=== PATIENT | female | born 1945 | race Caucasian/White ===

== ENCOUNTER → 2017-06-05 | Outpatient (CLI) | payer MEDICARE, OTHER ==
[~2017-06-05] MED LIST: ALBU18HF INH; AMIO400T4 PO; ASPI-496 PO; ATOR40TA PO; AZIT1PAC7 PO; CHOLESTOFF PO; ENOX60SY4 SQ; GUAR1PAC2 PO; METO25TA91 PO; METO50TA82 PO; SOTA80TA PO; TRAM50TA2 PO; WARF2.5T73 PO; WARF5TAB7 PO; ZOLP10TA PO
== END | disposition home or self-care (01) ==
LOC: CFH 13:18
PROVIDERS: ATTEND Internal Medicine
DX: I82.502 Chronic embolism and thrombosis of unspecified deep veins of left lower extremity (principal)

== ENCOUNTER → 2017-09-17 | Outpatient (CLI) | payer MEDICARE, OTHER ==
[~2017-09-17] MED LIST changes: -AZIT1PAC7 PO; +AZIT1PAC9 PO; +REGADENOSON 0.4 MG/5 ML SYRINGE ONE
== END | disposition home or self-care (01) ==
LOC: CFH 12:38
PROVIDERS: ATTEND Internal Medicine Cardiovascular Disease
DX: I48.91 Unspecified atrial fibrillation (principal)
CPT/HCPCS: 78452; 93017; A9502; J2785

== ENCOUNTER 2017-10-18 11:39 | Emergency (ER) | payer MEDICARE, OTHER ==
[~2017-10-18] VITALS: Ht 152.4 cm; Wt 62.9 kg
[~2017-10-18 11:39] MED LIST changes: -REGADENOSON 0.4 MG/5 ML SYRINGE ONE
[2017-10-18 11:46] VITALS: BP 175/66
== END 2017-10-18 12:50 | disposition home or self-care (01) ==
LOC: ED 12:40
DX: R58 Hemorrhage, not elsewhere classified (principal); I48.91 Unspecified atrial fibrillation; Z79.01 Long term (current) use of anticoagulants; Z96.652 Presence of left artificial knee joint
CPT/HCPCS: 93005; 99283

== ENCOUNTER → 2017-10-31 | Outpatient (CLI) | payer MEDICARE, OTHER | END | disposition home or self-care (01) | LOC: CFH 09:29 | PROVIDERS: ATTEND Surgery Vascular Surgery | DX: T18.2XXA Foreign body in stomach, initial encounter (principal); I82.91 Chronic embolism and thrombosis of unspecified vein; X58.XXXA Exposure to other specified factors, initial encounter; Y93.89 Activity, other specified; Y92.89 Other specified places as the place of occurrence of the external cause; Y99.8 Other external cause status | CPT/HCPCS: 71020; 74000 ==

== ENCOUNTER → 2018-06-03 | Outpatient (CLI) | payer MEDICARE, OTHER ==
[~2018-06-03] MED LIST changes: -AMIO400T4 PO; +AMIO400T5 PO; +WARF-36 PO; -WARF5TAB7 PO
== END | disposition home or self-care (01) ==
LOC: CFH 07:17
PROVIDERS: ATTEND Internal Medicine Cardiovascular Disease
DX: I08.0 Rheumatic disorders of both mitral and aortic valves (principal); I48.91 Unspecified atrial fibrillation; M94.0 Chondrocostal junction syndrome [Tietze]
CPT/HCPCS: 71046; 93306

== ENCOUNTER → 2018-10-29 | Outpatient (CLI) | payer MEDICARE, OTHER ==
[~2018-10-29] MED LIST changes: +OMNIPAQUE 350 MG/ML, 100ML BOTTLE ONE
== END | disposition home or self-care (01) ==
LOC: CFH 07:53
PROVIDERS: ATTEND Internal Medicine
DX: K80.20 Calculus of gallbladder without cholecystitis without obstruction (principal); K76.89 Other specified diseases of liver
CPT/HCPCS: 74160; 76700; Q9967

== ENCOUNTER 2018-12-11 09:22 | Outpatient (CLI) | payer MEDICARE, OTHER ==
[~2018-12-11 09:22] MED LIST changes: -OMNIPAQUE 350 MG/ML, 100ML BOTTLE ONE; +WARF2.5T32 PO; -WARF2.5T73 PO
[2018-12-11] MEDS ORDERED: WARF-36 PO (10:21)
[2018-12-11] MEDS ORDERED: ASPI81TA45 PO (10:21)
[2018-12-11] MEDS ORDERED: ALBU8.5H8 INH (10:21)
[2018-12-11] MEDS ORDERED: ATOR40TA78 PO (10:21)
[2018-12-11 10:26] LABS: BASOPHILS # (AUTO) 0.03 x10^3/uL (0-0.1); BASOPHILS % (AUTO) 0 % (0-1); EOSINOPHILS # (AUTO) 0.22 x10^3/uL (0-0.4); EOSINOPHILS % (AUTO) 3 % (1-7); LYMPHOCYTES % (AUTO) 26 % (22-44); MD NO; MEAN CORPUSCULAR HEMOGLOBIN 29.3 pg (27.0-34.8); MEAN CORPUSCULAR HGB CONC 32.3 g/dL (32.4-35.8); MEAN CORPUSCULAR VOLUME 90.7 fL (80-100); MEAN PLATELET VOLUME 8.9 fL (7.4-10.4); MONOCYTES # (AUTO) 0.71 x10^3/uL (0.2-0.8); MONOCYTES % (AUTO) 10 % (2-9); NEUTROPHILS # (AUTO) 4.59 x10^3/uL (1.8-6.8); NEUTROPHILS % (AUTO) 62 % (42-75); PLATELET COUNT 210 x10^3/uL (130-400); RED BLOOD COUNT 4.68 x10^6/uL (3.82-5.3); RED CELL DISTRIBUTION WIDTH 14.3 % (9.6-15.2)
[2018-12-11 10:41] LABS: PROTHROMBIN TIME 57.8 Seconds (9.6-11.5)
[2018-12-11 10:42] LABS: INTERNATIONAL NORMALIZED RATIO 5.84 (0.93-1.1)
== END 2018-12-11 23:59 | disposition home or self-care (01) ==
LOC: STAR 09:22
PROVIDERS: ATTEND Surgery Vascular Surgery
DX: Z01.818 Encounter for other preprocedural examination (principal)
CPT/HCPCS: 36415; 85025; 85610; 85730; 93005

== ENCOUNTER 2018-12-25 06:00 | Observation (INO) | payer MEDICARE, OTHER ==
[~2018-12-25] VITALS: Ht 152.4 cm; Wt 63.0 kg
[~2018-12-25 06:00] MED LIST changes: +ALBU8.5H8 INH; +ASPI81TA45 PO; +ATOR40TA78 PO
[2018-12-25 06:36] VITALS: BP 116/68
[2018-12-25] MEDS ORDERED: FENTANYL PF 250 MCG/5ML ONE (06:47)
[2018-12-25] MEDS ORDERED: BUPIVACAINE/PF-EPI 0.5% 1:200K ONE (06:47)
[2018-12-25] MEDS ORDERED: LACTATED RINGERS 1,000 ML IV SCH (06:52)
[2018-12-25 06:54] LABS: INTERNATIONAL NORMALIZED RATIO 0.98 (0.93-1.1); PROTHROMBIN TIME 10.4 Seconds (9.6-11.5)
[2018-12-25] MEDS ORDERED: DIAZEPAM 5 MG/ML, 2ML IVPush PRN (07:00)
[2018-12-25] MEDS ORDERED: LABETALOL 5MG/ML, 20ML IV PRN (07:00)
[2018-12-25] MEDS ORDERED: PROMETHAZINE 25 MG/ML, 1ML IV PRN (07:00)
[2018-12-25] MEDS ORDERED: ACETAMINOPHEN 325 MG TABLET PO PRN (07:00)
[2018-12-25] MEDS ORDERED: MORPHINE SULFATE 4 MG/ML, 1ML IVPush PRN ×2 (07:00→13:00)
[2018-12-25] MEDS ORDERED: hydrALAzine 20 MG/ML, 1ML IV PRN (07:00)
[2018-12-25] MEDS ORDERED: HYDROcodone/APAP 7.5-325MG/15ML UDC PO PRN (07:00)
[2018-12-25] MEDS ORDERED: ONDANSETRON 2MG/ML, 2ML IV PRN (07:00)
[2018-12-25] MEDS ORDERED: ONDANSETRON ODT 8 MG PO PRN (07:00)
[2018-12-25] MEDS ORDERED: EPHEDRINE 50 MG/ML, 1ML ONE (07:01)
[2018-12-25] MEDS ORDERED: BUPIVACAINE/PF-EPI 0.5% 1:200K INFIL ONE (07:18)
[2018-12-25] MEDS ORDERED: ONDANSETRON 2MG/ML, 2ML ONE (07:25)
[2018-12-25] MEDS ORDERED: CEFAZOLIN 1,000 MG ONE (07:25)
[2018-12-25] MEDS ORDERED: SUCCINYLCHOLINE 20 MG/ML, 10ML ONE (07:25)
[2018-12-25] MEDS ORDERED: DEXAMETHASONE 4 MG/ML, 1ML ONE (07:25)
[2018-12-25] MEDS ORDERED: ROCURONIUM 10MG/ML,5ML ONE (07:25)
[2018-12-25] MEDS ORDERED: NEOSTIGMINE 1 MG/ML, 10ML ONE (07:25)
[2018-12-25] MEDS ORDERED: GLYCOPYRROLATE 0.2MG/1ML, 5ML ONE (07:25)
[2018-12-25] MEDS ORDERED: PROPOFOL 10 MG/ML, 20ML ONE (07:25)
[2018-12-25] MEDS ORDERED: METOPROLOL 1 MG/ML, 5ML ONE (07:58)
[2018-12-25] MEDS ORDERED: HYDROcodone/APAP 7.5-325MG/15ML UDC ONE (07:58)
[2018-12-25] MEDS ORDERED: FENTANYL PF 100 MCG/2ML ONE (07:58)
[2018-12-25] MEDS: FENTANYL PF 100 MCG/2ML IV PRN ×2 (08:05→08:44)
[2018-12-25] MEDS: METOPROLOL 1 MG/ML, 5ML IV PRN ×3 (08:34→09:22)
[2018-12-25] MEDS ORDERED: METOPROLOL TARTRATE 25 MG TABLET PO ONE (10:41)
[2018-12-25 11:52] VITALS: BP 94/58
[2018-12-25] MEDS ORDERED: ONDANSETRON 2MG/ML, 2ML IVPush PRN ×2 (12:00→13:00)
[2018-12-25] MEDS ORDERED: ONDANSETRON ODT 4 MG PO PRN (12:00)
[2018-12-25] MEDS ORDERED: morphine SULFATE 10 MG/ML, 1ML IVPush PRN (12:00)
[2018-12-25] MEDS ORDERED: LABETALOL 5MG/ML, 20ML IVPush PRN (12:00)
[2018-12-25] MEDS ORDERED: HYDR-3240 PO (13:16)
[2018-12-25] MEDS ORDERED: ONDA4TAB7 PO (13:16)
[2018-12-25] MEDS: HYDROcodone/APAP 5/325 TABLET PO PRN ×2 (13:23→17:59)
[2018-12-25 13:35] VITALS: BP 107/66
[2018-12-25] MEDS ORDERED: ENOX60SY5 SC (17:36)
[2018-12-26] MEDS ORDERED: PANTOPRAZOLE 40 MG IV IVPush SCH (07:30)
== END 2018-12-25 18:14 | disposition home or self-care (01) ==
LOC: OUT 06:00 → 5SO 11:40 → OUT 11:56
PROVIDERS: ADMIT Surgery Vascular Surgery; ATTEND Surgery Vascular Surgery
DX: K80.20 Calculus of gallbladder without cholecystitis without obstruction (principal); E78.5 Hyperlipidemia, unspecified; G47.30 Sleep apnea, unspecified; I10 Essential (primary) hypertension; I25.10 Atherosclerotic heart disease of native coronary artery without angina pectoris; I48.0 Paroxysmal atrial fibrillation; I73.9 Peripheral vascular disease, unspecified; Z79.01 Long term (current) use of anticoagulants; Z87.891 Personal history of nicotine dependence; Z86.718 Personal history of other venous thrombosis and embolism
CPT/HCPCS: 36415; 47562; 84439; 85610; 85730; 88304; G0378; J0330; J0690; J1100; J2405; J2704; J2710; J3010; J3490

== ENCOUNTER → 2019-05-29 | Outpatient (CLI) | payer MEDICARE, OTHER ==
[~2019-05-29] MED LIST changes: +ENOX60SY5 SC; +HYDR-3240 PO; +ONDA4TAB7 PO
== END | disposition home or self-care (01) ==
LOC: RAD 15:28
PROVIDERS: ATTEND Surgery Vascular Surgery
DX: I82.91 Chronic embolism and thrombosis of unspecified vein (principal); Z90.49 Acquired absence of other specified parts of digestive tract; Z86.718 Personal history of other venous thrombosis and embolism
CPT/HCPCS: 74021

== ENCOUNTER 2020-01-27 07:40 | Day surgery (SDC) | payer MEDICARE, OTHER ==
[~2020-01-27] VITALS: Ht 152.4 cm; Wt 61.4 kg
[2020-01-27 08:07] VITALS: BP 150/80
[2020-01-27] MEDS ORDERED: ASPI81TA45 PO (08:20)
[2020-01-27 08:27] LABS: BASOPHILS # (AUTO) 0.04 x10^3/uL (0-0.1); BASOPHILS % (AUTO) 1 % (0-1); EOSINOPHILS % (AUTO) 5 % (1-7); LYMPHOCYTES # (AUTO) 1.21 x10^3/uL (1-3.4); LYMPHOCYTES % (AUTO) 20 % (22-44); MD NO; MEAN CORPUSCULAR HEMOGLOBIN 29.7 pg (27.0-34.8); MEAN CORPUSCULAR HGB CONC 32.9 g/dL (32.4-35.8); MEAN CORPUSCULAR VOLUME 90.2 fL (80-100); MEAN PLATELET VOLUME 9.1 fL (7.4-10.4); MONOCYTES # (AUTO) 0.57 x10^3/uL (0.2-0.8); MONOCYTES % (AUTO) 9 % (2-9); NEUTROPHILS # (AUTO) 4.06 x10^3/uL (1.8-6.8); NEUTROPHILS % (AUTO) 66 % (42-75); PLATELET COUNT 187 x10^3/uL (130-400); RED BLOOD COUNT 4.44 x10^6/uL (3.82-5.3); RED CELL DISTRIBUTION WIDTH 14.8 % (9.6-15.2)
[2020-01-27 08:35] LABS: ANION GAP 4 mmol/L (5-15); CALCIUM 8.5 mg/dL (8.5-10.1); CHLORIDE 115 mmol/L (98-107); CREATININE 0.95 mg/dL (0.55-1.02)
[2020-01-27 08:38] LABS: INTERNATIONAL NORMALIZED RATIO 1.51 (0.93-1.1); PROTHROMBIN TIME 16.1 Seconds (9.6-11.5)
== END 2020-01-27 10:00 | disposition home or self-care (01) ==
LOC: CACL 07:40
PROVIDERS: ATTEND Internal Medicine Cardiovascular Disease
DX: I48.91 Unspecified atrial fibrillation (principal)
CPT/HCPCS: 36415; 80048; 85025; 85610; 92960

== ENCOUNTER → 2020-08-11 | Outpatient (CLI) | payer MEDICARE, OTHER ==
[~2020-08-11] MED LIST changes: +REGADENOSON 0.4 MG/5 ML SYRINGE ONE
== END | disposition home or self-care (01) ==
LOC: CFH 07:33
PROVIDERS: ATTEND Internal Medicine Cardiovascular Disease
DX: I08.8 Other rheumatic multiple valve diseases (principal); I48.91 Unspecified atrial fibrillation; R06.02 Shortness of breath
CPT/HCPCS: 78452; 93017; 93306; A9502; J2785

== ENCOUNTER 2021-01-30 08:46 | Inpatient (IN) | payer MEDICARE, OTHER ==
[~2021-01-30] VITALS: Ht 152.4 cm; Wt 64.7 kg
[~2021-01-30 08:46] MED LIST changes: +HYDR-1067 PO; -HYDR-3240 PO; -REGADENOSON 0.4 MG/5 ML SYRINGE ONE
[2021-01-30] MEDS ORDERED: PLEASE ENTER HEIGHT AND WEIGHT MC SCH (09:00)
[2021-01-30 10:30] VITALS: BP 133/85
[2021-01-30 10:36] LABS: ANION GAP 4 mmol/L (5-15); CALCIUM 8.5 mg/dL (8.5-10.1); CHLORIDE 114 mmol/L (98-107); CREATININE 0.86 mg/dL (0.55-1.02)
[2021-01-30 10:41] LABS: CHOL/HDL RATIO 2.2; CHOLESTEROL, TOTAL 114 mg/dL (140-239); FREE T4 (FREE THYROXINE) 1.18 ng/dL (0.76-1.46); HDL CHOL % 46 % (28-40); HDL CHOLESTEROL (DIRECT) 52 mg/dL (40-60); LDL CHOLESTEROL,CALCULATED 49 mg/dL (54-169); LDL/HDL RATIO 0.9 (0.5-3.0); TRIGLYCERIDES 66 mg/dL (50-200); TROPONIN I < 0.015 ng/mL (0.000-0.045); VLDL CHOLESTEROL 13 mg/dL (0-25)
[2021-01-30] MEDS ORDERED: BISACODYL 5 MG EC TABLET PO PRN (11:30)
[2021-01-30] MEDS ORDERED: BISACODYL 10 MG SUPP PR PRN (11:30)
[2021-01-30] MEDS ORDERED: ONDANSETRON 2MG/ML, 2ML IVPush PRN (11:30)
[2021-01-30] MEDS ORDERED: ZOLPIDEM 5MG TABLET PO PRN (11:30)
[2021-01-30 11:49] LABS: PROTHROMBIN TIME 33.6 Seconds (9.6-11.5)
[2021-01-30 11:50] LABS: INTERNATIONAL NORMALIZED RATIO 3.21 (0.93-1.1)
[2021-01-30] MEDS: SOTALOL 80MG TABLET PO SCH ×2 (12:15→21:05)
[2021-01-30 14:29] VITALS: BP 112/75
[2021-01-30 16:24] LABS: TROPONIN I < 0.015 ng/mL (0.000-0.045)
[2021-01-30] MEDS ORDERED: WARFARIN 1 MG TABLET PO-COUM ONE (18:00)
[2021-01-30] MEDS: ACETAMINOPHEN 325 MG TABLET PO PRN (18:16)
[2021-01-30] MEDS ORDERED: SOTALOL 80MG TABLET PO SCH (21:00)
[2021-01-30 21:01] VITALS: BP 110/67
[2021-01-30] MEDS: ATORVASTATIN 40 MG TABLET PO SCH (21:05)
[2021-01-30 22:25] LABS: TROPONIN I < 0.015 ng/mL (0.000-0.045)
[2021-01-31 02:18] VITALS: BP 103/67
[2021-01-31 07:14] VITALS: BP 132/82
[2021-01-31] MEDS: ACETAMINOPHEN 325 MG TABLET PO PRN (10:05)
[2021-01-31] MEDS: SOTALOL 80MG TABLET PO SCH ×2 (10:05→21:10)
[2021-01-31 12:25] VITALS: BP 101/68
[2021-01-31 13:47] LABS: INTERNATIONAL NORMALIZED RATIO 2.46 (0.93-1.1); PROTHROMBIN TIME 25.9 Seconds (9.6-11.5)
[2021-01-31] MEDS ORDERED: WARFARIN 2.5 MG TABLET PO-COUM ONE (18:00)
[2021-01-31 20:00] VITALS: BP 94/57
[2021-01-31 21:08] VITALS: BP 100/67
[2021-01-31] MEDS: ATORVASTATIN 40 MG TABLET PO SCH (21:10)
[2021-01-31] MEDS: ASPIRIN 81 MG TABLET EC PO SCH (21:56)
[2021-02-01 00:33] VITALS: BP 97/59
[2021-02-01 07:30] VITALS: BP 115/71
[2021-02-01 07:38] LABS: INTERNATIONAL NORMALIZED RATIO 1.87 (0.93-1.1); PROTHROMBIN TIME 19.8 Seconds (9.6-11.5)
[2021-02-01] MEDS: SOTALOL 80MG TABLET PO SCH ×2 (09:03→20:38)
[2021-02-01] MEDS ORDERED: PROPOFOL 10 MG/ML, 20ML ONE (10:41)
[2021-02-01 12:59] VITALS: BP 127/85
[2021-02-01] MEDS: ACETAMINOPHEN 325 MG TABLET PO PRN (16:18)
[2021-02-01] MEDS ORDERED: WARFARIN 7.5 MG TABLET PO-COUM SCH (18:00)
[2021-02-01 19:40] VITALS: BP 110/70
[2021-02-01] MEDS: ATORVASTATIN 40 MG TABLET PO SCH (20:38)
[2021-02-01] MEDS: ASPIRIN 81 MG TABLET EC PO SCH (20:38)
[2021-02-02 02:05] VITALS: BP 113/72
[2021-02-02 05:09] LABS: INTERNATIONAL NORMALIZED RATIO 1.78 (0.93-1.1); PROTHROMBIN TIME 18.8 Seconds (9.6-11.5)
[2021-02-02 07:29] VITALS: BP 121/68
[2021-02-02] MEDS: SOTALOL 80MG TABLET PO SCH (09:23)
[2021-02-02] MEDS: ASPIRIN 81 MG TABLET EC PO SCH (09:23)
[2021-02-02] MEDS ORDERED: SOTA80TA18 PO (10:21)
== END 2021-02-02 13:08 | disposition home or self-care (01) | DRG 310 ==
LOC: 5SO 08:48 → DCLOUNGE 02-02 12:55
PROVIDERS: ADMIT Internal Medicine Cardiovascular Disease; ATTEND Internal Medicine Cardiovascular Disease
PROC: 5A2204Z Restoration of Cardiac Rhythm, Single (ICD-10-PCS; principal; 2021-02-01 11:30)
DX: I48.91 Unspecified atrial fibrillation (principal); E78.5 Hyperlipidemia, unspecified; Z88.5 Allergy status to narcotic agent; Z88.8 Allergy status to other drugs, medicaments and biological substances
CPT/HCPCS: 36415; 71046; 80048; 80061; 84439; 84443; 84484; 85014; 85018; 85610; 86803; 87340; 87806; 92960; 93005; G0378; J2704; G0475

== ENCOUNTER → 2021-02-27 | Day surgery (SDC) | payer MEDICARE, OTHER ==
[~2021-02-27] VITALS: Ht 162.6 cm; Wt 68.0 kg
[~2021-02-27] MED LIST changes: +PROPOFOL 10 MG/ML, 20ML ONE; +SOTA80TA18 PO; +benifiber PO
[2021-02-27 11:24] LABS: INTERNATIONAL NORMALIZED RATIO 2.02 (0.93-1.1); PROTHROMBIN TIME 21.3 Seconds (9.6-11.5)
[2021-02-27 11:25] LABS: ANION GAP 5 mmol/L (5-15); CALCIUM 8.9 mg/dL (8.5-10.1); CHLORIDE 113 mmol/L (98-107); CREATININE 0.83 mg/dL (0.55-1.02)
== END | disposition home or self-care (01) ==
LOC: CACL 10:26
PROVIDERS: ATTEND Internal Medicine Cardiovascular Disease
DX: I48.91 Unspecified atrial fibrillation (principal); E78.5 Hyperlipidemia, unspecified; E66.3 Overweight; Z68.28 Body mass index [BMI] 28.0-28.9, adult; Z79.01 Long term (current) use of anticoagulants; Z79.82 Long term (current) use of aspirin; Z79.899 Other long term (current) drug therapy; Z86.718 Personal history of other venous thrombosis and embolism; Z88.5 Allergy status to narcotic agent; Z88.8 Allergy status to other drugs, medicaments and biological substances; Z91.048 Other nonmedicinal substance allergy status; Z98.890 Other specified postprocedural states
CPT/HCPCS: 36415; 80048; 85610; 92960; 93005; J2704

== ENCOUNTER 2021-03-16 09:12 | Emergency (ER) | payer MEDICARE, OTHER ==
[~2021-03-16] VITALS: Ht 152.4 cm; Wt 62.9 kg
[~2021-03-16 09:12] MED LIST changes: -HYDR-1067 PO; +HYDR-2214 PO; -PROPOFOL 10 MG/ML, 20ML ONE
--- NOTE | 2021-03-16 09:15 | NUR ---
PT ARRIVED VIA EMS FROM HOME, SEE TRIAGE. FOUND PT ON FLOOR THIS AM AT APPROX [phone], UNABLE TO GET UP. PT ALERT, ABLE TO FOLLOW SOME COMMANDS. PT VERBALIZES BUT INAPPROPRIATE WORDS, WORD SALAD. PUPILS UNEQUAL BUT REACTIVE TO LIGHT. R PUPIL 3.0, L PUPIL 2.O. PT WITH R ARM WEAKNESS AND STIFFENING, R LEG MILDLY WEAK. NO FACIAL DROOP OR ASYMMETRY NOTED TO FACE OR MOUTH. PT ABLE WITH EQUAL EYE MOVEMENT, ABLE TO TRACK FINGER IN ALL BENOIT. AT BS.
[2021-03-16] MEDS ORDERED: SODIUM CHLORIDE FLUSH 10ML SYR IVF ONE (09:30)
[2021-03-16] MEDS ORDERED: OMNIPAQUE 350 MG/ML, 100ML BOTTLE ONE (09:56)
[2021-03-16 10:03] LABS: BASOPHILS % (AUTO) 1 % (0-1); EOSINOPHILS % (AUTO) 2 % (1-7); LYMPHOCYTES % (AUTO) 13 % (22-44); MEAN CORPUSCULAR HEMOGLOBIN 30.2 pg (27.0-34.8); MEAN CORPUSCULAR HGB CONC 33.2 g/dL (32.4-35.8); MEAN PLATELET VOLUME 8.9 fL (7.4-10.4); MONOCYTES % (AUTO) 7 % (2-9); NEUTROPHILS % (AUTO) 78 % (42-75); PLATELET COUNT 156 x10^3/uL (130-400); RED BLOOD COUNT 4.12 x10^6/uL (3.82-5.3); RED CELL DISTRIBUTION WIDTH 14.1 % (9.6-15.2)
[2021-03-16 10:04] LABS: MD NO
[2021-03-16 10:15] LABS: ALBUMIN 3.2 g/dL (3.4-5.0); ANION GAP 4 mmol/L (5-15); CHLORIDE 111 mmol/L (98-107)
--- NOTE | 2021-03-16 10:15 | NUR ---
PT MOVED TO WEIGHTED BED, BEDSCALE USED/ADJUSTED TRIAGE WT IN COMPUTER.
[2021-03-16 10:18] LABS: ALANINE AMINOTRANSFERASE 25 U/L (12-78); ALKALINE PHOSPHATASE 67 U/L (45-117); BILIRUBIN,TOTAL 0.8 mg/dL (0.2-1.0); CREATININE 0.75 mg/dL (0.55-1.02)
[2021-03-16 10:22] LABS: INTERNATIONAL NORMALIZED RATIO 1.45 (0.93-1.1); PROTHROMBIN TIME 15.4 Seconds (9.6-11.5)
--- NOTE | 2021-03-16 10:31 | NUR ---
PT RESTING QUIETLY, STILL SHAKES HEAD WHEN ASKED IF HAVING PAIN. ANNABELLE WARMER IN PLACE. PT SHAKES HEAD WHEN ASKED IF SHE CAN SWALLOW, HOLD ON SWALLOW EVALUATION AT THIS TIME. MED REC COMLETED TO BEST OF ABILITY. DOES NOT HAVE LIST AND DOES NOT KNOW DOSAGES. VSS.
--- NOTE | 2021-03-16 10:50 | NUR ---
TRANSFER FORM FILLED OUT. REPORT TO [facility].
--- NOTE | 2021-03-16 10:52 | NUR ---
JOSE RN: PT IS STAT TX TO [facility]. ACCEPTED BY DR.RAJ SWAN Addendum: 03/16/21 at 1055 by [email or web address] JOSE RN: PT IS STAT TX TO [facility]. ACCEPTED BY NEURO RADIOLOGIST. ACCEPTING [facility] . STAT TRANSPORT PROVIDED BY [facility].
--- NOTE | 2021-03-16 10:59 | NUR ---
TP RN: PT LEFT [facility] ED AT THIS TIME.
--- NOTE | 2021-03-16 11:00 | NUR ---
REPORT TO ZAHRA PATRICK AT [facility]. PT TRANSFERRED NOW.
[2021-03-16 11:01] VITALS: BP 137/58
== END 2021-03-16 11:03 | disposition other institution (70) ==
LOC: ED 09:38
DX: I63.032 Cerebral infarction due to thrombosis of left carotid artery (principal); I48.91 Unspecified atrial fibrillation; R53.1 Weakness; R00.9 Unspecified abnormalities of heart beat
CPT/HCPCS: 36415; 70450; 70496; 70498; 71045; 80053; 85025; 85610; 93005; 99291; Q9967

== ENCOUNTER 2021-03-31 07:01 | Day surgery (SDC) | payer MEDICARE, OTHER ==
[~2021-03-31] VITALS: Ht 152.4 cm; Wt 64.5 kg
[2021-03-31 07:14] VITALS: BP 119/72
[2021-03-31] MEDS ORDERED: SODIUM CHLORIDE 0.9% 1,000 ML IV SCH (07:30)
[2021-03-31] MEDS ORDERED: APIX5TAB PO (07:33)
[2021-03-31 08:06] LABS: ANION GAP 5 mmol/L (5-15); CALCIUM 8.8 mg/dL (8.5-10.1); CHLORIDE 111 mmol/L (98-107); CREATININE 0.88 mg/dL (0.55-1.02)
== END 2021-03-31 10:46 | disposition home or self-care (01) ==
LOC: CACL 07:01
PROVIDERS: ATTEND Internal Medicine Cardiovascular Disease
DX: I48.0 Paroxysmal atrial fibrillation (principal); I63.9 Cerebral infarction, unspecified; I10 Essential (primary) hypertension; E78.5 Hyperlipidemia, unspecified; E66.3 Overweight; Z68.27 Body mass index [BMI] 27.0-27.9, adult; Z79.01 Long term (current) use of anticoagulants; Z79.82 Long term (current) use of aspirin; Z79.899 Other long term (current) drug therapy; Z86.718 Personal history of other venous thrombosis and embolism; Z88.5 Allergy status to narcotic agent; Z88.8 Allergy status to other drugs, medicaments and biological substances; Z90.49 Acquired absence of other specified parts of digestive tract
CPT/HCPCS: 36415; 80048; 93312; 93321; 93325

== ENCOUNTER 2021-05-12 12:10 | Outpatient (CLI) | payer MEDICARE, OTHER ==
[~2021-05-12 12:10] MED LIST changes: +APIX5TAB PO
[2021-05-12] MEDS ORDERED: OMNIPAQUE 350 MG/ML, 150 ML BOTTLE ONE (14:30)
== END 2021-05-12 23:59 | disposition home or self-care (01) ==
LOC: STAR 12:10 → CFH 23:59
PROVIDERS: ATTEND Internal Medicine Cardiovascular Disease
DX: Z01.812 Encounter for preprocedural laboratory examination (principal); Z20.822 Contact with and (suspected) exposure to COVID-19; I48.91 Unspecified atrial fibrillation; R07.9 Chest pain, unspecified
CPT/HCPCS: 71046; 75572; 82565; Q9967; U0003; U0005

== ENCOUNTER 2021-05-16 06:01 | Observation (INO) | payer MEDICARE, OTHER ==
[~2021-05-16] VITALS: Ht 152.4 cm; Wt 77.2 kg
[2021-05-16] MEDS ORDERED: SODIUM CHLORIDE 0.9% 1,000 ML IV SCH (06:30)
[2021-05-16] MEDS ORDERED: Benefiber PO (06:55)
[2021-05-16] MEDS ORDERED: ESTR10TA4 VG (06:55)
[2021-05-16 06:59] VITALS: BP 121/87
[2021-05-16 07:14] LABS: BASOPHILS % (AUTO) 1 % (0-1); EOSINOPHILS % (AUTO) 3 % (1-7); LYMPHOCYTES % (AUTO) 25 % (22-44); MEAN CORPUSCULAR HEMOGLOBIN 30.3 pg (27.0-34.8); MEAN CORPUSCULAR HGB CONC 33.3 g/dL (32.4-35.8); MEAN PLATELET VOLUME 9.1 fL (7.4-10.4); MONOCYTES % (AUTO) 11 % (2-9); NEUTROPHILS % (AUTO) 60 % (42-75); PLATELET COUNT 204 x10^3/uL (130-400); RED BLOOD COUNT 4.63 x10^6/uL (3.82-5.3)
[2021-05-16 07:22] LABS: ALANINE AMINOTRANSFERASE 30 U/L (12-78); ALBUMIN 3.4 g/dL (3.4-5.0); ANION GAP 6 mmol/L (5-15); CHLORIDE 115 mmol/L (98-107); CREATININE 0.83 mg/dL (0.55-1.02)
[2021-05-16] MEDS ORDERED: LIDOCAINE 1%, 20ML ONE (07:25)
[2021-05-16 07:32] LABS: ALKALINE PHOSPHATASE 68 U/L (45-117); BILIRUBIN,TOTAL 0.6 mg/dL (0.2-1.0); TOTAL PROTEIN 6.5 g/dL (6.4-8.2)
[2021-05-16 07:35] LABS: PROTHROMBIN TIME 10.7 Seconds (9.6-11.5)
[2021-05-16] MEDS ORDERED: FENTANYL PF 250 MCG/5ML ONE (07:45)
[2021-05-16] MEDS ORDERED: ROCURONIUM 10 MG/ML,10ML ONE (08:04)
[2021-05-16] MEDS ORDERED: PROPOFOL 10 MG/ML, 20ML ONE (08:04)
[2021-05-16] MEDS ORDERED: DEXAMETHASONE 4 MG/ML, 1ML ONE (08:04)
[2021-05-16] MEDS ORDERED: SUCCINYLCHOLINE 20 MG/ML, 10ML ONE (08:04)
[2021-05-16] MEDS ORDERED: ONDANSETRON 2MG/ML, 2ML ONE (08:04)
[2021-05-16] MEDS ORDERED: ESTRADIOL 10 MCG VG SCH (11:30)
[2021-05-16] MEDS ORDERED: DIPHENHYDRAMINE 50 MG/ML, 1ML IVPush PRN (11:30)
[2021-05-16] MEDS ORDERED: EPHEDRINE 50 MG/ML, 1ML IVPush PRN (11:30)
[2021-05-16] MEDS ORDERED: MEPERIDINE/PF 25MG/0.5ML IVPush PRN (11:30)
[2021-05-16] MEDS ORDERED: ZOLPIDEM 5MG TABLET PO PRN (11:30)
[2021-05-16] MEDS ORDERED: APIXABAN 5 MG TABLET PO SCH (11:30)
[2021-05-16] MEDS ORDERED: EPHEDRINE 50 MG/ML, 1ML IM PRN (11:30)
[2021-05-16] MEDS: APIXABAN 5 MG TABLET PO SCH ×2 (11:30→20:41)
[2021-05-16] MEDS ORDERED: HYDROmorphone 1 MG/ML, 1ML INJ IVPush PRN (11:30)
[2021-05-16] MEDS ORDERED: ONDANSETRON 2MG/ML, 2ML IVPush PRN ×2 (11:30)
[2021-05-16] MEDS ORDERED: DIAZEPAM 5 MG/ML, 2ML IVPush PRN (11:30)
[2021-05-16] MEDS ORDERED: ACETAMINOPHEN 325 MG TABLET PO PRN (11:30)
[2021-05-16] MEDS ORDERED: LABETALOL 5MG/ML, 20ML IV PRN (11:30)
[2021-05-16] MEDS ORDERED: PROMETHAZINE 25 MG/ML, 1ML IVPush PRN (11:30)
[2021-05-16] MEDS ORDERED: FENTANYL PF 100 MCG/2ML IV PRN (11:30)
[2021-05-16] MEDS ORDERED: APIXABAN 5 MG TABLET ONE (11:41)
[2021-05-16 12:43] VITALS: BP 121/70
[2021-05-16] MEDS: ACETAMINOPHEN 325 MG TABLET PO PRN (14:16)
[2021-05-16] MEDS ORDERED: MORPHINE SULFATE 4 MG/ML, 1ML IVPush ONE ×2 (14:30→15:00)
[2021-05-16 18:32] VITALS: BP 122/54
[2021-05-16] MEDS: COLCHICINE 0.6 MG CAPSULE PO SCH (20:41)
[2021-05-16] MEDS ORDERED: ATORVASTATIN 40 MG TABLET PO SCH (21:00)
[2021-05-17 00:30] VITALS: BP 120/68
[2021-05-17] MEDS: ACETAMINOPHEN 325 MG TABLET PO PRN ×2 (04:11→09:35)
[2021-05-17 06:24] VITALS: BP 120/67
[2021-05-17] MEDS: APIXABAN 5 MG TABLET PO SCH (08:13)
[2021-05-17] MEDS: COLCHICINE 0.6 MG CAPSULE PO SCH (08:13)
[2021-05-17] MEDS ORDERED: COLC0.6C3 PO (08:31)
[2021-05-17 12:11] VITALS: BP 176/95
[2021-05-17] MEDS ORDERED: KETOROLAC 30 MG/1 ML ONE (12:22)
[2021-05-17] MEDS ORDERED: KETOROLAC 30 MG/1 ML IVPush PRN (12:30)
== END 2021-05-17 15:13 | disposition home or self-care (01) ==
LOC: CACL 06:01 → 5SO 11:17 → CACL 11:17 → 5SO 12:49 → DCLOUNGE 05-17 15:03
PROVIDERS: ADMIT Internal Medicine Cardiovascular Disease; ATTEND Internal Medicine Cardiovascular Disease
DX: I48.91 Unspecified atrial fibrillation (principal); I10 Essential (primary) hypertension; I63.9 Cerebral infarction, unspecified; Z86.73 Personal history of transient ischemic attack (TIA), and cerebral infarction without residual deficits; Z79.899 Other long term (current) drug therapy
CPT/HCPCS: 36415; 80053; 84443; 85025; 85347; 85610; 93005; 93306; 93312; 93321; 93325; 93356; 93613; 93656; 93657; 93662; 96374; 96375; C1730; C1732; C1759; C1766; C1893; C1894; G0378; J0330; J1100; J1885; J2270; J2405; J2704; J3010; J3490

== ENCOUNTER → 2021-08-30 | Outpatient (CLI) | payer MEDICARE, OTHER | END | disposition home or self-care (01) | LOC: RAD 07:24 | PROVIDERS: ATTEND Surgery Vascular Surgery | DX: T81.509 Unspecified complication of foreign body accidentally left in body following unspecified procedure (principal); M47.816 Spondylosis without myelopathy or radiculopathy, lumbar region ==